=== PATIENT | female | born 1975 | race Caucasian/White ===

== ENCOUNTER 2023-07-14 22:57 | Emergency (ER) | payer BC ==
--- NOTE | 2023-07-14 23:07 | ERPHSYRPT ---
- History of Present Illness Time Seen by Provider: 07/14/23 23:07 Historian: patient, family Exam Limitations: no limitations Physician History: pt had total thyroidectomy for papillary thyroid Ca on the 4th and came home but today having chest tightness. BP is reported high but was higher also today but without other symptoms. nonsmoker. Family is here as confirming source for Hx independently in ER. discussed risks/benefits with pt and family for , IV, NTG, ASA, CBC, CXR, EKG, Trops, BNP, D dmer, CMP, T4, TSH, lactate. and they wish to proceed. these are ordered. results discussed with pt and family. chest clear ht reg without M. FUndi benign with normal mental status and neuro exam. wound is healing well without crep or signs of infection. Timing/Duration: day(s) Activities at Onset: none Chest Pain Radiation: no radiation Severity of Pain-Max: mild Severity of Pain-Current: mild Associated Symptoms: denies symptoms, shortness of breath Prior Chest Pain/Cardiac Workup: no prior chest pain, no prior cardiac workup Nitro Today/Relief: no nitro taken today, 0.4 mg x 1, provided by ED, no relief Aspirin Treatment Today: 325 mg x 1, provided at home Allergies/Adverse Reactions: azithromycin [From Zithromax Z-Willi] Allergy (Intermediate, Verified 07/14/23 23:04) Hives Home Medications: Acetaminophen/Diphenhydramine [Tylenol Pm Ex-Strength Caplet] 1 each PO HS 07/14/23 [History] Amitriptyline HCl 10 mg [Elavil 10 mg] 10 mg PO HS 07/14/23 [History] Calcium Carbonate/Vitamin D3 [Calcium 500-Vit D3 200 Tablet] 1 each PO TID 07/14/23 [History] Cholecalciferol (Vitamin D3) [Vitamin D] 400 unit PO HS 07/14/23 [History] Dapagliflozin Propanediol [Farxiga] 10 mg PO HS 07/14/23 [History] Diclofenac Sodium 50 mg [Voltaren 50 mg] 75 mg PO HS 07/14/23 [History] Ezetimibe 10 mg [Zetia 10 MG] 10 mg PO HS 07/14/23 [History] Indomethacin 25 mg [Indocin 25 MG] 25 mg PO QID 07/14/23 [History] Insulin Degludec [Tresiba Flextouch U-100] 34 unit SQ HS 07/14/23 [History] Levothyroxine Sodium 100 Mcg [Synthroid 100 Mcg] 100 mcg PO DAILY 07/14/23 [History] Levothyroxine Sodium 25 Mcg [Synthroid 25 Mcg] 25 mcg PO DAILY 07/14/23 [History] Lisinopril 10 mg [Zestril 10 MG] 10 mg PO HS 07/14/23 [History] Magnesium Oxide [Magnesium] 400 mg PO HS 07/14/23 [History] Metformin HCl Xr 500 mg [Glucophage XR 500 MG] 1,000 mg PO HS 07/14/23 [History] Multivitamin/Iron/Folic Acid [Centrum Adults Tablet] 1 each PO HS 07/14/23 [H istory] Ondansetron ODT 4 MG [Zofran Odt 4 mg] 4 mg PO Q6H PRN PRN 07/14/23 [History] Oxycodone HCl 5 mg Ir [Oxy-IR 5 MG] 5 mg PO Q4H PRN PRN 07/14/23 [History] Tirzepatide [Mounjaro] 7.5 mg SQ WEEKLY 07/14/23 [History] - Review of Systems Constitutional: No Fever, No Chills Eyes: No Symptoms Ears, Nose, & Throat: No Symptoms Respiratory: Dyspnea, No Cough Cardiac: Chest Pain, No Edema, No Syncope Abdominal/Gastrointestinal: No Abdominal Pain, No Nausea, No Vomiting, No Diarrhea Genitourinary Symptoms: No Dysuria Musculoskeletal: No Back Pain, No Neck Pain Skin: No Rash Neurological: No Dizziness, No Focal Weakness, No Sensory Changes Psychological: No Symptoms Endocrine: No Symptoms All Other Systems: Reviewed and Negative - Past Medical History Pertinent Past Medical History: Yes Cardiac History: Hypertension Other Medical History: thyroid CA txd - Past Surgical History Past Surgical History: Yes Other Surgical History: throidectomy - Nursing Vital Signs Nursing Vital Signs: Initial Vital Signs Temperature 97.9 F 07/14/23 23:05 Pulse Rate 90 07/14/23 23:05 Respiratory Rate 13 07/14/23 23:05 Blood Pressure 219/134 07/14/23 23:05 O2 Sat by Pulse Oximetry 96 07/14/23 23:05 Pain Scale Pain Intensity 2 - Physical Exam General Appearance: no apparent distress, alert Eye Exam: PERRL/EOMI, eyes nml inspection Ears, Nose, Throat Exam: normal ENT inspection, moist mucous membranes Neck Exam: normal inspection, non-tender, supple, full range of motion Respiratory Exam: normal breath sounds, lungs clear, No respiratory distress Cardiovascular Exam: regular rate/rhythm, normal heart sounds Gastrointestinal/Abdomen Exam: soft, No tenderness, No mass Back Exam: normal inspection, No CVA tenderness, No vertebral tenderness Extremity Exam: normal inspection, normal range of motion Neurologic Exam: alert, oriented x 3, cooperative, normal mood/affect, sensation nml, No motor deficits Skin Exam: normal color, warm, dry - Course Nursing assessment & vital signs reviewed: Yes - CT Exams Chest CT Interpretation: Tele-radiologist Report, No PE Ordered Tests: Active Orders 24 hr Category Date 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 Care 07/14/23 23:30 Active EKG-ER Only STAT Care 07/14/23 23:29 Active IV Insertion STAT Care 07/14/23 23:29 Active CHEST WITH CONTRAST [CT] Stat Exams 07/15/23 00:18 Completed CBC W DIFF Stat Lab 07/14/23 23:29 Completed CMP Stat Lab 07/14/23 23:29 Completed D-DIMER QUANTITATIVE Stat Lab 07/14/23 23:29 Completed HCG QUALITATIVE, SERUM Stat Lab 07/14/23 23:39 Completed LIPASE Stat Lab 07/14/23 23:29 Completed Lactic Acid Stat Lab 07/14/23 23:45 Completed NT PRO BNPII Stat Lab 07/14/23 23:29 Completed TROPONIN Q4H Lab 07/14/23 23:30 Completed TROPONIN Q4H Lab 07/15/23 02:42 Received TROPONIN Q4H Lab 07/15/23 07:30 Ordered Medication Summary Generic Name Dose Route Start Last Admin Trade Name Freq PRN Reason Stop Dose Admin Sodium Chloride 1,000 mls @ 100 mls/hr 07/14/23 23:30 07/14/23 23:55 Sodium Chloride 0.9% 1000 Ml IV 08/13/23 23:29 100 mls/hr .Q10H EDSON Administration Discontinued Medications Generic Name Dose Route Start Last Admin Trade Name Anil PRN Reason Stop Dose Admin Aspirin 324 mg 07/14/23 23:29 Aspirin 81 Mg Tab.Chew PO 07/14/23 23:30 STAT ONE Clonidine 0.1 mg 07/14/23 23:29 07/14/23 23:55 Clonidine Hcl 0.1 Mg Tablet PO 07/14/23 23:30 0.1 mg STAT ONE Administration Clonidine Confirm 07/14/23 23:51 Clonidine Hcl 0.1 Mg Tablet Administered 07/14/23 23:52 Dose 0.1 mg .ROUTE .STK-MED ONE Nitroglycerin 0.4 mg 07/14/23 23:29 07/14/23 23:55 Nitroglycerin 0.4 Mg (Ed) 0.4 Mg Tab.Subl SL 07/14/23 23:30 0.4 mg STAT ONE Administration Nitroglycerin Confirm 07/14/23 23:51 Nitroglycerin 0.4 Mg (Ed) 0.4 Mg Tab.Subl Administered 07/14/23 23:52 Dose 0.4 mg SL .STK-MED ONE Lab/Rad Data: Laboratory Result Diagrams 07/14/23 23:29 07/14/23 23:29 Laboratory Results 07/14/23 07/14/23 07/14/23 Range/Units 23:45 23:39 23:30 WBC (4.0-10.5) x10^3/uL RBC (4.1-5.4) x10^6/uL Hgb (12.0-16.0) g/dL Hct (35-47) % MCV (78-100) fL MCH (26-32) pg MCHC (32-36) g/dL RDW (11.5-14.0) % Plt Count (150-450) x10^3/uL MPV (7.5-11.0) fL Gran % (36.0-66.0) % Immature Gran % (Auto) (0.00-0.4) % Nucleat RBC Rel Count (0.00-0.1) % Eos # (Auto) (0-0.5) x10^3/uL Immature Gran # (Auto) (0.00-0.03) x10^3u/L Absolute Lymphs (auto) (1.0-4.6) x10^3/uL Absolute Monos (auto) (0.0-1.3) x10^3/uL Absolute Nucleated RBC (0.00-0.01) x10^3u/L Lymphocytes % (24.0-44.0) % Monocytes % (0.0-12.0) % Eosinophils % (0.00-5.0) % Basophils % (0.0-0.4) % Absolute Granulocytes (1.4-6.9) x10^3/uL Basophils # (0-0.4) x10^3/uL D-Dimer (0.0-0.50) mg/L Sodium (135-145) mmol/L Potassium (3.5-5.1) mmol/L Chloride (98-107) mmol/L Carbon Dioxide (22-30) mmol/L Anion Gap (5-15) MEQ/L BUN (7-17) mg/dL Creatinine (0.52-1.04) mg/dL Estimated GFR ML/MIN Glucose (74-106) mg/dL Lactic Acid 1.4 (0.4-2.0) Calcium (8.4-10.2) mg/dL Total Bilirubin (0.2-1.3) mg/dL AST (14-36) U/L ALT (0-35) U/L Alkaline Phosphatase (38-126) U/L Troponin I < 0.012 (0.000-0.033) ng/mL NT-Pro-B Natriuret Pep (<300) pg/mL Serum Total Protein (6.3-8.2) g/dL Albumin (3.5-5.0) g/dL Lipase (23-300) U/L Serum HCG, Qual NEGATIVE (NEGATIVE) 07/14/23 07/14/23 07/14/23 Range/Units 23:29 23:29 23:29 WBC 13.3 H (4.0-10.5) x10^3/uL RBC 4.50 (4.1-5.4) x10^6/uL Hgb 13.9 (12.0-16.0) g/dL Hct 40.6 (35-47) % MCV 90.2 (78-100) fL MCH 30.9 (26-32) pg MCHC 34.2 (32-36) g/dL RDW 12.0 (11.5-14.0) % Plt Count 348 (150-450) x10^3/uL MPV 10.1 (7.5-11.0) fL Gran % 54.5 (36.0-66.0) % Immature Gran % (Auto) 0.5 H (0.00-0.4) % Nucleat RBC Rel Count 0.0 (0.00-0.1) % Eos # (Auto) 0.38 (0-0.5) x10^3/uL Immature Gran # (Auto) 0.06 H (0.00-0.03) x10^3u/L Absolute Lymphs (auto) 4.88 H (1.0-4.6) x10^3/uL Absolute Monos (auto) 0.63 (0.0-1.3) x10^3/uL Absolute Nucleated RBC 0.00 (0.00-0.01) x10^3u/L Lymphocytes % 36.8 (24.0-44.0) % Monocytes % 4.8 (0.0-12.0) % Eosinophils % 2.9 (0.00-5.0) % Basophils % 0.5 (0.0-0.4) % Absolute Granulocytes 7.23 H (1.4-6.9) x10^3/uL Basophils # 0.07 (0-0.4) x10^3/uL D-Dimer 1.40 H* (0.0-0.50) mg/L Sodium 142 (135-145) mmol/L Potassium 3.6 (3.5-5.1) mmol/L Chloride 108 H (98-107) mmol/L Carbon Dioxide 23 (22-30) mmol/L Anion Gap 14.0 (5-15) MEQ/L BUN 23 H (7-17) mg/dL Creatinine 0.84 (0.52-1.04) mg/dL Estimated GFR 84.6 ML/MIN Glucose 96 (74-106) mg/dL Lactic Acid (0.4-2.0) Calcium 8.1 L (8.4-10.2) mg/dL Total Bilirubin 0.30 (0.2-1.3) mg/dL AST 35 (14-36) U/L ALT 54 H (0-35) U/L Alkaline Phosphatase 97 (38-126) U/L Troponin I (0.000-0.033) ng/mL NT-Pro-B Natriuret Pep 44.8 (<300) pg/mL Serum Total Protein 7.6 (6.3-8.2) g/dL Albumin 4.2 (3.5-5.0) g/dL Lipase 126 (23-300) U/L Serum HCG, Qual (NEGATIVE) - Progress Progress: improved, re-examined Air Movement: good Progress Note: 07/15/23 00:30 BP improved with Tx. discussed risks/benefits of CT PE protocol and pt and family wish to proceed. 07/15/23 02:58 pt does not wish to stay for any additional workup or observation although this is offered. discussed limitations of testing so far and that further w/u to more completely rule out a cardiac condition is required, but she prefers DC with outpt f/u with PMD rather than further admission workup here. The pt has the capacity to make this choice with her current normal mental status . 07/15/23 03:05 07/15/23 03:09 Blood Culture(s) Obtained: No Antibiotics given: No Counseled pt/family regarding: lab results, diagnosis, need for follow-up, rad results Medical Desision Making - Independent Historian Additional History obtained from: Family - Discussion of managment Reviewed:: Test results, Need for additional workup Agreed on:: Treatment plan, need for follow-up - Diagnostic Testing Diagnostic test were ordered, analyzed, and reviewed by me: Yes Radiological Interpretation: Interpreted by me, Reviewed by me - Risk of complications The pt has a mod risk of morbidity or mortality based on: Need for prescription drug management The pt has a high risk of morbidity or mortality based on: Decision regarding hospitilization or escalation of hosp level of care - Departure Departure Disposition: Home Clinical Impression: Chest pain of unknown etiology, elevated blood pressure Condition: Good Critical Care Time: No Referrals: ELIZABETH NEWSOME MD [Primary Care Provider] - Follow up/PCP as directed Instructions: Chest Pain (DC) Additional Instructions: followup with your DrKristie today for further workup since even though the tests performed were negative , an underlying cardiac or other condition still could be evolving and needs to be worked up. return meantime i f further symptoms of concern. also followup mild lever test and white blood count elevations with PMD.
[2023-07-14 23:23] VITALS: TEMP 97.9
[2023-07-14] MEDS ORDERED: BABY ASPIRIN 81 MG CHEW PO ONE (23:29)
[2023-07-14] MEDS ORDERED: CLONIDINE 0.1 MG TABLET ONE (23:51)
[2023-07-14] MEDS ORDERED: Sodium Chloride 0.9% 1000 ML 1,000 ML ONE (23:51)
[2023-07-14] MEDS ORDERED: Nitrostat 0.4 MG (ED) SL ONE (23:51)
[2023-07-14 23:52] LABS: Absolute Neutrophil Ct (ANC) 7.23 x10^3/uL (1.4-6.9); BASOPHIL % 0.5 % (0.0-0.4); Basophil (Absolute #) 0.07 x10^3/uL (0-0.4); Eosinophil % 2.9 % (0.00-5.0); Eosinophil (Absolute #) 0.38 x10^3/uL (0-0.5); Hematocrit 40.6 % (35-47); Hemoglobin 13.9 g/dL (12.0-16.0); IMMATURE GRAN # 0.06 x10^3u/L (0.00-0.03); IMMATURE GRAN % 0.5 % (0.00-0.4); Lymphocyte (Absolute #) 4.88 x10^3/uL (1.0-4.6); Lymphocytes % 36.8 % (24.0-44.0); Mean Cell Volume 90.2 fL (78-100); Mean Corpuscular Hemoglobin 30.9 pg (26-32); Mean Corpuscular Hgb Concent. 34.2 g/dL (32-36); Mean Platelet Volume 10.1 fL (7.5-11.0); Monocyte (Absolute #) 0.63 x10^3/uL (0.0-1.3); Monocytes % 4.8 % (0.0-12.0); Neutrophil % 54.5 % (36.0-66.0); Platelet Count 348 x10^3/uL (150-450); White Blood Count 13.3 x10^3/uL (4.0-10.5)
[2023-07-14] MEDS: Nitrostat 0.4 MG (ED) SL ONE (23:55)
[2023-07-14] MEDS: Sodium Chloride 0.9% 1000 ML 1,000 ML IV SCH (23:55)
[2023-07-14] MEDS: CLONIDINE 0.1 MG TABLET PO ONE (23:55)
[2023-07-15 00:11] LABS: HCG SERUM TEST NEGATIVE (NEGATIVE)
[2023-07-15 00:14] LABS: ALBUMIN 4.2 g/dL (3.5-5.0); BILIRUBIN,TOTAL 0.3 mg/dL (0.2-1.3); Calcium 8.1 mg/dL (8.4-10.2); Creatinine 1 0.84 mg/dL (0.52-1.04); EST GLOMERULAR FILTRATION RATE 84.6 ML/MIN; NT PRO BNPII 44.8 pg/mL (<300); Potassium 3.6 mmol/L (3.5-5.1); Total Protein 7.6 g/dL (6.3-8.2)
--- NOTE | 2023-07-15 02:28 | XRAY ---
CLINICAL HISTORY: cp, sob, elevated d dimer COMPARISON: None TECHNIQUE: CT chest with contrast was performed using contrast with sagittal and coronal reformats. One of the following dose reduction techniques were utilized for this exam: Automated exposure control, adjustment of the mA and/or kV according to patient size, and use of iterative reconstruction. FINDINGS: Basal lung sections are not included in the scan. The main pulmonary trunk, right and left pulmonary arteries with the ascending and descending branches are normal. The segmental branches are normal in caliber and show good contrast opacification with no evidence of filling defect / thrombosis. However, limited evaluation/suboptimal evaluation is possible due to phasing. The aortic arch and visualized ascending aorta and descending aorta are normal. Bilateral lung sahu are normal in translucency and markings. No significant mediastinal lymphadenopathy. No evidence of pleural/pericardial effusion. Heart size is normal. The thoracic spine shows degenerative changes. Scanned upper abdomen appears unremarkable. Incidental note is made of small air locules around the thyroid gland. Recommended clinical correlation IMPRESSION: No definite evidence of acute thromboembolism. Incidental note is made of small air locules around the thyroid gland. Recommended clinical correlation Electronically Signed by: Doc Mcmillan MD. (07/15/2023 02:24:31 EDT)
[2023-07-15 03:02] VITALS: BP 155/83; PULSE 96; RESP 25; O2SAT 94
== END 2023-07-15 03:16 | disposition home or self-care (01) ==
LOC: ED 22:57
DX: R07.9 Chest pain, unspecified (principal); I10 Essential (primary) hypertension; Z79.84 Long term (current) use of oral hypoglycemic drugs; Z79.85 Long-term (current) use of injectable non-insulin antidiabetic drugs; Z79.4 Long term (current) use of insulin; Z79.899 Other long term (current) drug therapy
CPT/HCPCS: 36000; 36415; 71260; 80053; 83605; 83690; 83880; 84484; 84703; 85025; 85379; 93005; 93041; 96360; 96361; 99284; A9270-GY